=== PATIENT | male | born 1955 | race Caucasian/White ===

== ENCOUNTER 2022-06-01 09:54 | Emergency (ER) | payer MEDICARE ==
[2022-06-01] MEDS ORDERED: Albuterol/Ipratropium 3.0-0.5 MG/3 ML Neb Soln ONE ×2 (10:14→10:48)
[2022-06-01] MEDS ORDERED: Albuterol/Ipratropium 3.0-0.5 MG/3 ML Neb Soln NEB PRN (10:33)
[2022-06-01] MEDS ORDERED: Albuterol 0.083% 2.5 MG/3 ML Neb Soln NEB ONE (10:36)
[2022-06-01] MEDS ORDERED: Albuterol 0.021% 0.63 MG/3 ML Neb Soln ONE (10:49)
[2022-06-01] MEDS ORDERED: Albuterol 0.083% 2.5 MG/3 ML Neb Soln ONE (10:50)
== END 2022-06-01 11:25 | disposition home or self-care (01) ==
LOC: LB.ED 09:54
DX: J41.0 Simple chronic bronchitis (principal); E87.6 Hypokalemia
CPT/HCPCS: 36415; 71045; 80048; 85027; 94640; 99285; J7620

== ENCOUNTER 2024-07-11 12:11 | Emergency (ER) | payer MEDICARE ==
[2024-07-11] MEDS: Albuterol/Ipratropium 3.0-0.5 MG/3 ML Neb Soln NEB SCH (12:15)
[2024-07-11] MEDS: Albuterol/Ipratropium 3.0-0.5 MG/3 ML Neb Soln ONE (12:30)
[2024-07-11] MEDS: Budesonide 0.5 MG/2 ML Neb Susp NEB ONE (12:30)
[2024-07-11] MEDS: Albuterol 0.083% 2.5 MG/3 ML Neb Soln NEB ONE (13:16)
[2024-07-11] MEDS ORDERED: Azithromycin 250 MG Tab ONE (13:30)
[2024-07-11] MEDS ORDERED: predniSONE 10 MG Tab ONE (13:30)
== END 2024-07-11 13:40 | disposition home or self-care (01) ==
LOC: LB.ED 12:11
DX: J41.0 Simple chronic bronchitis (principal); I10 Essential (primary) hypertension; Z79.899 Other long term (current) drug therapy
CPT/HCPCS: 94640; 99283; 99284; A9270-GY; J7512